=== PATIENT | male | born 1970 | race American Indian/Alaskan Native ===

== ENCOUNTER 2021-12-05 16:17 | Emergency (ER) | payer BC, OTHER ==
[2021-12-05 17:29] VITALS: BP 122/87; PULSE 81
[2021-12-05 18:21] LABS: RESPIRATORY SYNCYTIAL VIR NAA NEGATIVE (NEGATIVE)
[2021-12-05 18:26] LABS: CORONAVIRUS COVID-19 NAA POSITIVE (NEGATIVE)
== END 2021-12-05 18:36 | disposition home or self-care (01) ==
LOC: DL.ED 16:17
DX: U07.1 COVID-19 (principal)
CPT/HCPCS: 0241U; 87081; 87430; 99284